=== PATIENT | male | born 1960 | race Caucasian/White ===

== ENCOUNTER 2018-02-15 11:47 | Outpatient (CLI) | payer OTHER ==
--- NOTE | 2018-02-15 13:17 | RAD ---
RIGHT WRIST THREE VIEWS: History: Neuropathy of right radial nerve. FINDINGS/IMPRESSION: The scapholunate interval measures 5 mm, consistent with scapholunate disassociation. No fracture or dislocation or bony destruction is otherwisei seen. POS: [facility]
--- NOTE | 2018-02-15 13:57 | RAD ---
RIGHT HAND THREE VIEWS: HISTORY: Neuropathy of the right radial nerve. FINDINGS: No fracture, dislocation, or bony destruction is seen. There is suggestion of negative ulnar varianc e. POS: [facility]
== END 2018-02-15 11:48 | disposition home or self-care (01) ==
LOC: SCSRAD 11:47
PROVIDERS: ATTEND Nurse Practitioner Family
DX: G56.31 Lesion of radial nerve, right upper limb (principal)